=== PATIENT | male | born 1955 | race Caucasian/White ===

== ENCOUNTER 2019-03-10 21:02 | Emergency (ER) | payer OTHER ==
[~2019-03-10] VITALS: Ht 180.3 cm; Wt 95.0 kg
[2019-03-10] MEDS ORDERED: LISI20TA18 PO (21:19)
[2019-03-10] MEDS ORDERED: PRAV20TA2 PO (21:19)
[2019-03-10] MEDS ORDERED: ADACEL/BOOSTRIX VACCINE (DIPHTH/PERTUSS/ACELL/TETANUS)0.5ML SYR (90715) IM ONE (23:30)
[2019-03-10] MEDS ORDERED: LIDOCAINE 1% MDV 20ML VIAL IM ONE (23:30)
[2019-03-11 00:11] VITALS: BP 150/94
[2019-03-11] MEDS ORDERED: KEFL500C17 PO (00:39)
--- NOTE | 2019-03-11 07:33 | REP ---
Clinical: Foreign body. Technique: AP, lateral, bilateral oblique views of the right second digit. Findings: Foreign body consistent with fishhook within the soft tissues overlying the distal phalanx of the second digit. Impression: Foreign body within the soft tissue overlying the distal phalanx. Electronically Signed by Sree Ortez MD 03/11/2019 07:25 A
== END 2019-03-11 00:46 | disposition home or self-care (01) ==
LOC: M ED 21:02
DX: S60.450A Superficial foreign body of right index finger, initial encounter (principal); W45.8XXA Other foreign body or object entering through skin, initial encounter; Y92.89 Other specified places as the place of occurrence of the external cause; I10 Essential (primary) hypertension; Z79.899 Other long term (current) drug therapy